=== PATIENT | male | born 1970 | race Caucasian/White ===

== ENCOUNTER → 2017-05-30 | Outpatient (CLI) | payer BC, OTHER ==
--- NOTE | 2017-05-31 05:57 | HKNOTE ---
DATE OF SERVICE: 05/30/2017 CHIEF COMPLAINT: Right knee pain. HISTORY OF PRESENT ILLNESS: This is a 46-year-old male who is complaining of a 3-month history of right knee pain. The pain is on the inside and back of his right knee. It is constant. It is interfering with his activities of daily living. He describes the pain as sharp. He denies any groin or back pain. He has had previous right knee arthroscopic meniscectomy [address] Quinton Taylor[address] He states that in February he injured his right knee again, resulting in continuous pain. He has had previous activity modification with [id number] pain medication. He has not obtained any pain relief. He has no other complaints. PHYSICAL EXAMINATION: GAIT: Antalgic gait. RIGHT HIP: Flexion 0-90 degrees, 50 degrees of external rotation, 20 degrees of internal rotation, negative Stinchfield, negative straight leg raise, negative Villa's. RIGHT KNEE: Neutral alignment. Tender over the medial joint line, nontender over the lateral joint line, 0-100 degrees range of motion, stable to varus/valgus stress. Positive Marisabel's, negative David's, negative anterior drawer, negative posterior drawer. MOTOR: Quadriceps hamstrings, tibialis anterior, gastrocnemius- soleus complex 5/5. VASCULAR: Palpable dorsalis pedis pulse. IMPRESSION: A 46-year-old male with right knee pain that has been worsening. PLAN: He will obtain an MRI of his right knee. He will return in 2 weeks to go over the results. Dictated By: Orville Velazquez MD /[email or web address] /Document#: [id number]
== END | disposition home or self-care (01) ==
LOC: HKI 14:09
PROVIDERS: ATTEND Orthopaedic Surgery Adult Reconstructive Orthopaedic Surgery
DX: M25.561 Pain in right knee (principal)
CPT/HCPCS: G0463

== ENCOUNTER → 2017-06-18 | Outpatient (CLI) | payer BC ==
--- NOTE | 2017-06-18 18:48 | HKNOTE ---
DATE OF SERVICE: 06/18/2017 CHIEF COMPLAINT: Right knee pain. HISTORY OF PRESENT ILLNESS: This is a 46-year-old male who has been complaining of chronic right knee pain. Patient recently had an MRI of his right knee and is here to go over the results. He has had a previous right knee arthroscopic surgery for meniscus tear. He denies any recent history of trauma. He has no other complaints. Right knee exam: Tender over the medial and lateral joint lines, 0-120 degrees range of motion. Stable to varus, valgus stress. Positive Marisabel's on the medial and lateral side. Negative David's. Negative anterior drawer, negative posterior drawer; 5/5 quadriceps, hamstrings, tibialis anterior, gastroc soleus. MRI right knee: There is an oblique tear of the posterior horn of the medial meniscus. There is a horizontal tear of the posterior horn of the lateral meniscus near the root. The cruciate ligaments are intact. There is a sprain of the medial collateral ligament. IMPRESSION: A 46-year-old male with right knee medial and lateral meniscus tear. PLAN: Mr. Prado will begin physical therapy. He can take [id number] ibuprofen. I discussed treatment options. If he wishes to proceed with surgery, he will call for an appointment at a later time. Dictated By: Orville Velazquez MD /[email or web address] /Document#: [id number]
== END | disposition home or self-care (01) ==
LOC: HKI 13:54
PROVIDERS: ATTEND Orthopaedic Surgery Adult Reconstructive Orthopaedic Surgery
DX: S83.281D Other tear of lateral meniscus, current injury, right knee, subsequent encounter (principal); S83.241D Other tear of medial meniscus, current injury, right knee, subsequent encounter; X58.XXXD Exposure to other specified factors, subsequent encounter